=== PATIENT | male | born 1945 | race Caucasian/White ===

== ENCOUNTER 2022-08-12 05:45 | Day surgery (SDC) | payer OTHER ==
[~2022-08-12 05:45] MED LIST: CIPRO500 MG PO; KETO10TA2 PO; RESTORIL30 MG PO; TENORMIN25 MG; ZESTRIL20 MG
== END 2022-08-12 14:00 | disposition home or self-care (01) ==
LOC: CIR.AMB 05:45
PROVIDERS: ATTEND Urology
DX: N43.2 Other hydrocele (principal); N43.0 Encysted hydrocele; I10 Essential (primary) hypertension; Z95.0 Presence of cardiac pacemaker; Z88.6 Allergy status to analgesic agent; Z88.5 Allergy status to narcotic agent; Z20.822 Contact with and (suspected) exposure to COVID-19; Z87.891 Personal history of nicotine dependence

== ENCOUNTER 2022-09-22 11:14 | Outpatient (CLI) | payer OTHER | END 2022-09-22 11:15 | disposition home or self-care (01) | LOC: LAB 11:14 | PROVIDERS: ATTEND Urology | DX: N45.3 Epididymo-orchitis (principal) ==

== ENCOUNTER 2022-09-22 12:04 | Outpatient (CLI) | payer OTHER | END 2022-09-22 12:05 | disposition home or self-care (01) | LOC: SONOGRAMA 12:04 | PROVIDERS: ATTEND Urology | DX: N50.89 Other specified disorders of the male genital organs (principal); R97.20 Elevated prostate specific antigen [PSA]; N32.81 Overactive bladder; N45.3 Epididymo-orchitis; N43.3 Hydrocele, unspecified; F52.21 Male erectile disorder; Z98.890 Other specified postprocedural states ==